=== PATIENT | female | born 1985 | race Caucasian/White ===

== ENCOUNTER 2017-09-17 01:59 | Emergency (ER) | payer BC ==
[~2017-09-17] VITALS: Ht 162.6 cm; Wt 47.6 kg
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
[2017-09-17] MEDS ORDERED: LET SOLN TOPICAL 8 ML UDC TP ONE ×2 (02:30→02:35)
[2017-09-17] MEDS ORDERED: LIDOCAINE 2% JEL 5 ML TUBE ONE (02:37)
--- NOTE | 2017-09-17 02:40 | NUR ---
MEDICATED PER MD ORDERS.
[2017-09-17] MEDS ORDERED: LIDOCAINE 5% OINT 35.44 GM TUBE TP ONE (03:00)
[2017-09-17] MEDS ORDERED: diphenhydrAMINE HCL 50 MG/ML VIAL IM ONE (03:00)
[2017-09-17] MEDS ORDERED: diphenhydrAMINE HCL 50 MG/ML VIAL ONE (03:03)
--- NOTE | 2017-09-17 03:23 | NUR ---
Patient discharged with family to home in stable condition. Written and verbal after care instructions given, instructed not to drive. Patient verbalizes understanding of instruction. Patient ambulatory with a steady gait.
[2017-09-17 03:32] VITALS: BP 119/66
== END 2017-09-17 03:33 | disposition home or self-care (01) ==
LOC: ER 02:04
DX: R20.8 Other disturbances of skin sensation (principal)
CPT/HCPCS: 96372; 99283; A4606; J1200; Z7610